=== PATIENT | female | born 1995 | race Caucasian/White ===

== ENCOUNTER 2022-06-18 14:37 | Emergency (ER) | payer OTHER, SELFPAY ==
[2022-06-18 14:46] VITALS: BP 156/119; PULSE 65; RESP 16; TEMP 36.4; O2SAT 100
--- NOTE | 2022-06-18 14:51 | ED.URI ---
HPI - URI/Sore Throat General Chief Complaint: Upper Respiratory Infection Stated Complaint: Sore throat, loss of hearing right ear, eye irrita Time Seen by Provider: 06/18/22 14:53 Source: patient and RN notes reviewed Mode of arrival: ambulatory Limitations: no limitations History of Present Illness HPI Narrative: 26 y/o female presented for c/o right ear pain since today. Endorses hearing is muffled and pain is 10/10. Also reports yesterday left eye drainage, and cough sinus congestion and sore throat for about 4 days. Denies sick contacts. Denies fever, chills, n/v/d. Hx HTN. MD elicited complaint: cough Related Data Home Medications Medication Instructions Recorded Confirmed amlodipine 10 mg tablet 10 mg DIRECTED 06/18/22 06/18/22 beclomethasone dipropionate 80 80 mcg inhalation DIRECTED 06/18/22 06/18/22 mcg/actuation HFA breath activated aerosol (Qvar RediHaler) ergocalciferol (vitamin D2) 1,250 1,250 mcg DIRECTED 06/18/22 06/18/22 mcg (50,000 unit) capsule hydrochlorothiazide 25 mg tablet 25 mg DIRECTED 06/18/22 06/18/22 losartan 100 mg tablet 100 mg DIRECTED 06/18/22 06/18/22 metformin 500 mg tablet 500 mg DIRECTED 06/18/22 06/18/22 metoprolol tartrate 50 mg tablet 50 mg DIRECTED 06/18/22 06/18/22 Allergies Allergy/AdvReac Type Severity Reaction Status Date / Time montelukast Allergy Unknown hives Verified 10/16/15 14:56 Review of Systems Review of Systems: CONSTITUTIONAL: Denies malaise, chills, sweats, fever EYES: Denies visual changes, redness, or discharge ENT: Reports rhinorrhea, congestion, sinus pain, otalgia, sore throat CARDIOVASCULAR: Denies chest pain, palpitations, edema RESPIRATORY: Reports cough, post nasal drainage. Denies dyspnea GASTROINTESTINAL: Denies abdominal pain, nausea, vomiting, diarrhea SKIN: Denies rash or itching MUSCULOSKELETAL: denies myalgia NEUROLOGIC: reports headache Exam Narrative: GENERAL: Ill-appearing, nontoxic EYES: conjunctivae clear, no active drainage to left eye ENT: Mucous membranes moist. Left TM pearly moss with dull light reflex, right canal and TM erythematous, nontender; no tragal tenderness. Oropharynx erythematous without lesions or exudate, no drooling, no hoarseness, no trismus, uvula midline. NECK: Supple. No lymphadenopathy CHEST: Clear to auscultation, breath sounds equal. No wheezing, rhonchi, rales, or stridor. No respiratory distress, speaks in full sentences. HEART: Regular rate and rhythm. No murmur heard. SKIN: Warm, dry, no rash. NEURO: Alert and oriented x3. PSYCH: Normal mood and affect Course Course Emergency Course: Patient is aware of diagnosis, understands and agrees to treatment plan. Anticipatory guidance given. Patient agrees to follow-up as directed and is aware of reasons to seek care at the emergency department. Portions of this record may have been created with voice recognition software Level of Care: Express Care Visit Vital Signs Vital signs: Vital Signs Temperature 97.5 F L 06/18/22 14:46 Pulse Rate 65 06/18/22 14:46 Respiratory Rate 16 06/18/22 14:46 Blood Pressure 156/119 H 06/18/22 14:46 Pulse Oximetry 100 06/18/22 14:46 Oxygen Delivery Room Air 06/18/22 14:46 Temperature 97.5 F L 06/18/22 14:46 Pulse Rate 65 06/18/22 14:46 Respiratory Rate 16 06/18/22 14:46 Blood Pressure 156/119 H 06/18/22 14:46 Pulse Oximetry 100 06/18/22 14:46 Oxygen Delivery Room Air 06/18/22 14:46 reviewed MDM - URI/Sore Throat MDM Narrative Medical decision making narrative: covid and strep negative. Suspect ear and eye drainage r/t URI. Advised supportive measures and signs/symptoms to go to the ER. Abx for worsening/persistent ear pain if unable to be seen by pcp. Pt is appropriate for outpt treatment and f/u. Differential Diagnosis Differential diagnosis: Likely upper respiratory infection, sinusitis and viral infection Lab Data Labs: Lab Results 06/18
== END 2022-06-18 15:38 | disposition home or self-care (01) ==
PROVIDERS: Emergency Provider Nurse Practitioner Family
DX: J06.9 Acute upper respiratory infection, unspecified (principal); Z20.822 Contact with and (suspected) exposure to COVID-19
CPT/HCPCS: 87081; 87426; 87880; 99213; C9803; G0463